=== PATIENT | female | born 1955 | race Caucasian/White ===

== ENCOUNTER 2022-04-14 07:20 | Emergency (ER) | payer OTHER, MEDICARE ==
[2022-04-14] MEDS ORDERED: Sodium Chloride 0.9% 10 ML Syringe FLUSH PRN (08:51)
[2022-04-14] MEDS ORDERED: HYDROmorphone 0.5 MG/0.5 ML Syringe IVPUSH ONE (09:49)
[2022-04-14] MEDS ORDERED: Propofol 200 MG/20 ML SDV ONE (10:58)
[2022-04-14] MEDS ORDERED: fentaNYL 50 MCG/ML SDV ONE (10:58)
== END 2022-04-14 14:22 | disposition home or self-care (01) ==
LOC: VM.ED 07:20
DX: S43.014A Anterior dislocation of right humerus, initial encounter (principal); I10 Essential (primary) hypertension; F17.210 Nicotine dependence, cigarettes, uncomplicated; W18.30XA Fall on same level, unspecified, initial encounter; Y93.K1 Activity, walking an animal
CPT/HCPCS: 23650; 23655; 73030-RT; 73060-RT; 96374; 99152; 99153; 99283; 99283-25; J1170; J2704; J3010; J3490